=== PATIENT | male | born 1965 | race Hispanic/Latino ===

== ENCOUNTER 2024-04-20 08:27 | Observation (INO) | payer BC, OTHER ==
[~2024-04-20] VITALS: Ht 170.2 cm; Wt 93.0 kg
[2024-04-20 08:29] VITALS: TEMP 97.1
[2024-04-20 09:16] LABS: BASOPHILS # (AUTO) 0.1 (0.0-0.1); BASOPHILS % 0.8 % (0.0-1.0); EOSINOPHILS # (AUTO) 0.1 (0.0-0.4); EOSINOPHILS % 1.9 % (0.0-6.0); HEMATOCRIT 48.9 % (38.2-49.6); HEMOGLOBIN 17.8 g/dL (14.0-18.0); LYMPHOCYTES # (AUTO) 2.7 (1.0-3.2); LYMPHOCYTES % 43.4 % (18.0-39.1); MEAN CORPUSCULAR HEMOGLOBIN 32.1 pg (28-32); MEAN CORPUSCULAR HGB CONC 36.4 g/dL (31-35); MEAN CORPUSCULAR VOLUME 88.1 fL (81-99); MONOCYTES # (AUTO) 0.4 (0.2-0.8); MONOCYTES % 6.3 % (4.4-11.3); NEUTROPHILS % 47.3 % (38.7-80.0); PLATELET COUNT 276 x10e3/uL (140-360); RED BLOOD COUNT 5.55 x10e6/uL (4.3-5.7); RED CELL DISTRIBUTION WIDTH 11.1 % (11.7-14.4); WHITE BLOOD COUNT 6.32 x10e3/uL (4.8-10.8)
[2024-04-20] MEDS ORDERED: ASPIRIN 81 MG CHEW TAB ONE (09:25)
[2024-04-20] MEDS: SODIUM CHLORIDE 0.9% 1000ML 1,000 ML IV STA (09:26)
[2024-04-20] MEDS: LABETALOL HCL 5 MG/ML 20ML VIAL IV STA (09:28)
[2024-04-20] MEDS: ASPIRIN 81 MG CHEW TAB PO ONE (09:29)
[2024-04-20 09:35] LABS: INR 0.95; PROTHROMBIN TIME 13.3 seconds (11.9-14.5)
[2024-04-20 09:36] LABS: PARTIAL THROMBOPLASTIN TIME 27.5 seconds (23.8-35.5)
[2024-04-20 09:46] LABS: ALANINE AMINOTRANSFERASE 54 IU/L (0-55); ALBUMIN/GLOBULIN RATIO 1.2 (0.8-2.0); ALKALINE PHOSPHATASE 47 IU/L (40-150); ANION GAP 14.9 mmol/L (8-16); BLOOD UREA NITROGEN 11 mg/dL (7-26); BUN/CREATININE RATIO 13 (6-25); CALCIUM 9.4 mg/dL (8.4-10.2); CARBON DIOXIDE 20 mmol/L (22-29); CHLORIDE 103 mmol/L (98-107); CREATINE KINASE 45 IU/L (30-200); CREATININE, SERUM 0.83 mg/dL (0.72-1.25); EST GLOMERULAR FILTRATION RATE 100 ML/MIN (>=60); GLUCOSE 260 mg/dL (74-118); MAGNESIUM 1.6 MG/DL (1.3-2.1); POTASSIUM 3.9 mmol/L (3.5-5.1); SODIUM 134 mmol/L (136-145); TOTAL PROTEIN 7.3 g/dL (6.5-8.1)
[2024-04-20 09:55] LABS: TROPONIN I < 0.001 ng/mL (0-0.300)
[2024-04-20] MEDS ORDERED: DEXTROSE 50% SYRINGE 50 ML IV PRN (10:30)
[2024-04-20] MEDS ORDERED: HYDRALAZINE HCL 20 MG/ML VIAL IV PRN (10:30)
[2024-04-20] MEDS ORDERED: ONDANSETRON HCL INJ 2MG/ML 2ML 2 MG/ML VIAL IV PRN (10:30)
[2024-04-20] MEDS: NIFEDIPINE CR 30 MG TAB PO ONE (11:35)
[2024-04-20] MEDS: INSULIN LISPRO 100 UNIT/1 ML 3ML VIAL SQ SCH (11:49)
[2024-04-20 14:41] VITALS: PULSE 69; RESP 16
[2024-04-20 16:40] LABS: BILIRUBIN,URINE NEGATIVE (NEGATIVE); CLARITY,URINE SL CLOUDY (CLEAR); COLOR,URINE YELLOW (YELLOW); GLUCOSE, URINE 500 (NEGATIVE); KETONES,URINE TRACE (NEGATIVE); LEUKOCYTE ESTERASE ,URINE NEGATIVE (NEGATIVE); NITRITE,URINE NEGATIVE (NEGATIVE); PH,URINE 6 (5 - 7); PROTEIN,URINE DIPSTICK NEGATIVE (NEGATIVE); URINE UROBILINOGEN 0.2 mg/dL (0.2 - 1)
[2024-04-20 17:01] VITALS: BP 162/93; PULSE 64; RESP 18; TEMP 98.7; O2SAT 97
[2024-04-20 17:49] VITALS: BP 162/93; PULSE 64; RESP 18; TEMP 98.7; O2SAT 97
[2024-04-20] MEDS: NIFEDIPINE CR 30 MG TAB PO SCH (17:54)
[2024-04-20 20:00] VITALS: BP 162/93; PULSE 64; RESP 18; TEMP 98.7; O2SAT 97
[2024-04-21] VITALS: BP 168/88; PULSE 63; RESP 18; TEMP 98.4; O2SAT 99
[2024-04-21 04:00] VITALS: BP 165/85; PULSE 74; RESP 18; TEMP 98.6; O2SAT 98
[2024-04-21 06:29] LABS: BASOPHILS # (AUTO) 0.1 (0.0-0.1); BASOPHILS % 0.6 % (0.0-1.0); EOSINOPHILS # (AUTO) 0.1 (0.0-0.4); EOSINOPHILS % 0.7 % (0.0-6.0); HEMATOCRIT 52.6 % (38.2-49.6); HEMOGLOBIN 17.9 g/dL (14.0-18.0); LYMPHOCYTES # (AUTO) 2.4 (1.0-3.2); LYMPHOCYTES % 22.2 % (18.0-39.1); MEAN CORPUSCULAR HEMOGLOBIN 31.9 pg (28-32); MEAN CORPUSCULAR VOLUME 93.6 fL (81-99); MONOCYTES # (AUTO) 0.5 (0.2-0.8); MONOCYTES % 4.6 % (4.4-11.3); NEUTROPHILS # (AUTO) 7.6 (2.1-6.9); NEUTROPHILS % 71.6 % (38.7-80.0); PLATELET COUNT 296 x10e3/uL (140-360); RED BLOOD COUNT 5.62 x10e6/uL (4.3-5.7); WHITE BLOOD COUNT 10.61 x10e3/uL (4.8-10.8)
[2024-04-21 07:06] LABS: ALBUMIN/GLOBULIN RATIO 1.1 (0.8-2.0); ANION GAP 17.1 mmol/L (8-16); BILIRUBIN,TOTAL 1.1 mg/dL (0.2-1.2); CALCIUM 9.3 mg/dL (8.4-10.2); CHOL/HDL RATIO 7.1 (3.9-4.7); CREATININE, SERUM 0.92 mg/dL (0.72-1.25); POTASSIUM 4.1 mmol/L (3.5-5.1); TOTAL PROTEIN 7.5 g/dL (6.5-8.1)
[2024-04-21 07:44] LABS: TROPONIN I 0.008 ng/mL (0-0.300)
[2024-04-21 08:35] VITALS: BP 140/80; PULSE 71; RESP 18; TEMP 98.4; O2SAT 100
[2024-04-21] MEDS: ASPIRIN 81 MG ENTERIC COATED PO SCH (08:54)
[2024-04-21] MEDS ORDERED: NO HOME MEDS (09:01)
[2024-04-21 09:03] VITALS: BP 140/80; PULSE 71; RESP 18; TEMP 98.4; O2SAT 100
[2024-04-21 12:28] VITALS: BP 101/86; PULSE 86; RESP 20; TEMP 97.1; O2SAT 100
== END 2024-04-21 12:45 | disposition home or self-care (01) ==
LOC: ER 08:40 → INTOOBSV 10:27 → ERHOLD 10:27 → MED/SURG3 17:00
PROVIDERS: ADMIT Internal Medicine; ATTEND Internal Medicine
DX: G45.9 Transient cerebral ischemic attack, unspecified (principal); I10 Essential (primary) hypertension; R53.1 Weakness; E11.65 Type 2 diabetes mellitus with hyperglycemia; Z87.891 Personal history of nicotine dependence; Z79.84 Long term (current) use of oral hypoglycemic drugs; E78.5 Hyperlipidemia, unspecified
CPT/HCPCS: 36415 ×2; 70450; 70496; 70498; 70551; 71045; 80053 ×2; 80061; 81001; 82550 ×2; 82948 ×2; 83036; 83735; 84484 ×2; 85025 ×2; 85610; 85730; 93005; 93306; 99284; G0378 ×2; J3490; J7030